=== PATIENT | male | born 1945 | race Native Hawaiian/Other Pacific Islander ===

== ENCOUNTER 2022-10-23 15:13 | Emergency (ER) | payer OTHER ==
[~2022-10-23] VITALS: Ht 182.9 cm; Wt 91.6 kg
[2022-10-23 15:59] LABS: PLATELET COUNT 272 K/uL (142-355)
[2022-10-23] MEDS ORDERED: FAMO20TA4 PO (17:17)
[2022-10-23] MEDS ORDERED: EUTHYROX75 MCG PO (17:20)
[2022-10-23] MEDS ORDERED: ASPIRIN 81 LOW81 MG PO (17:21)
[2022-10-23] MEDS ORDERED: CLON0.5T36 PO (17:21)
[2022-10-23] MEDS ORDERED: DIVA125C PO (17:23)
[2022-10-23] MEDS ORDERED: FINA5TAB2 PO (17:25)
[2022-10-23] MEDS ORDERED: DOCU100C10 PO (17:25)
[2022-10-23] MEDS ORDERED: HYDR25TA60 PO (17:26)
[2022-10-23] MEDS ORDERED: TAMS0.4C PO (17:27)
[2022-10-23] MEDS ORDERED: SERT100T PO (17:27)
[2022-10-23] MEDS ORDERED: QUET25TA2 PO ×2 (17:28→17:44)
[2022-10-23] MEDS ORDERED: INDERAL LA120 MG PO (17:31)
[2022-10-23] MEDS ORDERED: COOL TOP (17:40)
[2022-10-23] MEDS ORDERED: [UNRECOGNIZED DRUG - OTHER] TOP (17:40)
[2022-10-23] MEDS ORDERED: MIRALAX17 GM PO (17:42)
[2022-10-23] MEDS ORDERED: CLON1TAB18 PO (17:42)
[2022-10-23] MEDS ORDERED: MIRTAZAPINE7.5 MG PO (17:45)
[2022-10-23] MEDS ORDERED: SIMV40TA57 PO (17:46)
[2022-10-23] MEDS ORDERED: SENNA PO (17:46)
== END 2022-10-23 16:45 | disposition still patient (30) ==
LOC: ED 15:30
PROVIDERS: Family Medicine
DX: R45.6 Violent behavior (principal); F03.90 Unspecified dementia, unspecified severity, without behavioral disturbance, psychotic disturbance, mood disturbance, and anxiety; Z02.79 Encounter for issue of other medical certificate
CPT/HCPCS: 80053; 85027; 87635; 93005; 99283; U0003